=== PATIENT | male | born 1980 | race Caucasian/White ===

== ENCOUNTER 2017-02-21 15:06 | Emergency (ER) | payer SELFPAY ==
[~2017-02-21] VITALS: Ht 190.5 cm; Wt 92.0 kg
[~2017-02-21 15:06] MED LIST: COLA100C3 PO; PANT20 PO; ZOFR4TAB PO
[2017-02-21 15:08] VITALS: BP 109/56; PULSE 80; RESP 16; TEMP 97.7; O2SAT 98
--- NOTE | 2017-02-21 15:24 | PD ---
Physical Exam Time Seen by Provider: 15:23 Narrative Pt presents to the emergency department for evaluation of N/V/D for 3 days and today chest pain and lightheadedness. States had fever of 102 degrees F this morning. VSS. Awaiting bed placement. Data Data Last Documented VS Vital Signs Date Time Temp Pulse Resp B/P Pulse Ox O2 Delivery O2 Flow Rate FiO2 02/21/17 15:08 97.7 80 16 109/56 98 Room Air MDM Supervised Visit with VIC: Susan Stevenson Feb 21, 2017 15:24
--- NOTE | 2017-02-21 15:56 | PD ---
HPI Chief Complaint: GI Complaint Time Seen by Provider: 15:50 Travel History International Travel<30 days: No Contact w/Intl Traveler<30days: No Traveled to known affect area: No History of Present Illness HPI 36-year-old male presents to the emergency department for evaluation of nausea, vomiting, diarrhea, chest pain, fevers, fatigue, dizziness, cough. Patient was nausea, vomiting, diarrhea for 3 days. He states he has had 3 stools today which were liquid without blood. He states he has vomited multiple times. Reports fevers of up to 102.3. He states his last fever was this morning. He did not take anything for his fever is now afebrile. Patient states he started with left-sided chest pain and shortness of breath that has been intermittent since yesterday. He states his pressure currently rates a 5/10. He also states he is fatigued and dizzy. He denies any syncope. He reports chronic lower abdominal pain that he has had for "years". He has never followed up with a industrial automation engineer for this. He denies any penile discharge or testicular pain. No leg swelling. No recent trauma or surgery. No history DVT or PE. No hemoptysis. Patient reports history of asthma and uses albuterol as needed. Patient denies history of IVDU. [facility] Past Medical History Asthma: Yes Diminished Hearing: No Respiratory: Yes (ASTHMA) Tetanus Vaccination: Unknown Social History Alcohol Use: Yes Tobacco Use: Yes Substance Use: No Allergies-Medications (Allergen,Severity, Reaction): Coded Allergies: No Known Allergies (Verified , 02/21/17) Reported Meds & Prescriptions Reported Meds & Active Scripts Active Review of Systems Except as stated in HPI: all other systems reviewed are Neg Physical Exam Narrative GENERAL: Well-nourished, well-developed male patient, ambulatory. Afebrile. SKIN: Focused skin assessment warm/dry. HEAD: Normocephalic. Atraumatic. EYES: No scleral icterus. No injection or drainage. NECK: Supple, trachea midline. No JVD or lymphadenopathy. CARDIOVASCULAR: Regular rate and rhythm without murmurs, gallops, or rubs. RESPIRATORY: Breath sounds equal bilaterally. No accessory muscle use. Mild respiratory wheezes noted throughout. GASTROINTESTINAL: Abdomen soft, non-tender, nondistended. No abdominal pain to Palpation. MUSCULOSKELETAL: No cyanosis, or edema. Left chest wall is easily reproducible with palpation. BACK: Nontender without obvious deformity. No CVA tenderness. Data Data Last Documented VS Vital Signs Date Time Temp Pulse Resp B/P Pulse Ox O2 Delivery O2 Flow Rate FiO2 02/21/17 16:23 16 97 02/21/17 16:10 21 02/21/17 15:08 97.7 80 109/56 Room Air Orders Electrocardiogram (02/21/17 15:47) Complete Blood Count With Diff (02/21/17 15:47) Comprehensive Metabolic Panel (02/21/17 15:47) Influenzae A/B Antigen (02/21/17 15:47) Chest, Single Ap (02/21/17 15:47) Iv Access Insert/Monitor (02/21/17 15:47) Oximetry (02/21/17 15:47) Sodium Chloride 0.9% Flush (Ns Flush) (02/21/17 16:00) Lipase (02/21/17 15:47) Creatine Kinase (Cpk) (02/21/17 15:47) Troponin I (02/21/17 15:47) Sodium Chlor 0.9% 1000 Ml Inj (Ns 1000 M (02/21/17 16:00) Ondansetron Inj (Zofran Inj) (02/21/17 16:00) Albuterol-Ipratropium Neb (Duoneb Neb) (02/21/17 16:00) Labs Laboratory Tests Test 02/21/17 14:00 White Blood Count 11.2 TH/MM3 Red Blood Count 5.07 MIL/MM3 Hemoglobin 14.7 GM/DL Hematocrit 43.6 % Mean Corpuscular Volume 86.1 FL Mean Corpuscular Hemoglobin 28.9 PG Mean Corpuscular Hemoglobin 33.6 % Concent Red Cell Distribution Width 12.9 % Platelet Count 257 TH/MM3 Mean Platelet Volume 8.0 FL Neutrophils (%) (Auto) 75.4 % Lymphocytes (%) (Auto) 13.4 % Monocytes (%) (Auto) 7.7 % Eosinophils (%) (Auto) 3.0 % Basophils (%) (Auto) 0.5 % Neutrophils # (Auto) 8.4 TH/MM3 Lymphocytes # (Auto) 1.5 TH/MM3 Monocytes # (Auto) 0.9 TH/MM3 Eosinophils # (Auto) 0.3 TH/MM3 Basophils # (Auto) 0.1 TH/MM3 CBC Comment DIFF FINAL Differential Comment Sodium Level 139 MEQ/L Potassium Level 3.4 MEQ/L Chloride Level 103 MEQ/L Carbon Dioxide Level 28.4 MEQ/L Anion Gap 8 MEQ/L Blood Urea Nitrogen 10 MG/DL Creatinine 0.89 MG/DL Estimat Glomerular Filtration 97 ML/MIN Rate Random Glucose 81 MG/DL Calcium Level 9.2 MG/DL Total Bilirubin 0.4 MG/DL Aspartate Amino Transf 21 U/L (AST/SGOT) Alanine Aminotransferase 27 U/L (ALT/SGPT) Alkaline Phosphatase 95 U/L Total Creatine Kinase 62 U/L Troponin I LESS THAN 0.02 NG/ML Total Protein 7.8 GM/DL Albumin 3.9 GM/DL Lipase 62 U/L MDM Medical Decision Making Medical Screen Exam Complete: Yes Emergency Medical Condition: Yes Medical Record Reviewed: Yes Interpretation(s) chest x-ray - CONCLUSION: No acute disease. Hyperinflated lungs. Differential Diagnosis Viral syndrome versus influenza versus pneumonia versus asthma exacerbation Narrative Course 36-year-old male presents to the emergency department for evaluation nausea, vomiting, diarrhea, intermittent fevers, chest pain, shortness of breath. Physical exam does reveal mild expiratory wheezes noted throughout. EKG, CBC, CMP, lipase, CK, troponin, and influenza are ordered and pending. Chest x-ray is ordered and pending. Patient is given normal saline 1 L IV bolus, Zofran 4 mg IV, DuoNeb 2. EKG shows sinus rhythm, heart rate 65, no acute ST changes. CBC shows slight leukocytosis 11.2. CMP shows no acute abnormality. Lipase is 62. CK is 62. Troponin is less than 0.02. Influenza is negative. Chest x-ray shows no acute disease. I discussed the case with my attending physician, Dr. Dominguez, who agrees with plan and disposition. Patient prescription for Bentyl, Protonix, Zofran. He is taking [id number] Tylenol as needed for fevers and follow up with primary care physician. He is to return for any acute worsening of symptoms. He verbalizes agreement and understanding. Diagnosis Primary Impression: Nausea and vomiting Qualified Code: R11.2 - Non-intractable vomiting with nausea, unspecified vomiting type Additional Impression: Viral syndrome Referrals: [facility] Primary Care Physician Patient Instructions: Acute Nausea and Vomiting (ED), General Instructions, Viral Syndrome (ED) Additional Instructions: Take Bentyl as directed for abdominal pain. Take Protonix as instructed. Take Zofran as started as needed for nausea and vomiting. [id number] Tylenol every 4 hours as needed for fever. Follow-up with her primary care physician and industrial automation engineer. Return to the emergency department for any acute worsening of symptoms. Med/Other Pt SpecificInfo: Prescription(s) given Scripts Pantoprazole (Protonix)20 Mg Tab20 Mg PO DAILY #30 TAB Ref 0 Prov:Laverne Coreas 02/21/17 Ondansetron (Zofran)4 Mg Tab4 Mg PO Q6HR PRN (NAUSEA OR VOMITING) #20 TAB Ref 0 Prov:Laverne Coreas 02/21/17 Dicyclomine (Bentyl)20 Mg Tab20 Mg PO QID PRN (ABDOMINAL PAIN) 7 Days Ref 0 Prov:Laverne Coreas 02/21/17 Disposition: 01 DISCHARGE HOME Condition: Stable Laverne Coreas Feb 21, 2017 15:56
[2017-02-21] MEDS ORDERED: SODIUM CHLORIDE 0.9% FLUSH 10 ML FLUSH IVF PRN (16:00)
[2017-02-21] MEDS ORDERED: SODIUM CHLOR 0.9% 1000 ML INJ 1,000 ML IV ONE (16:00)
[2017-02-21] MEDS ORDERED: ONDANSETRON HCL 4 MG/2 ML VIAL IV PUSH ONE (16:00)
[2017-02-21] MEDS: RESP: ALBUTEROL 2.5 MG/IPRATROPIUM 0.5 MG NEB (SCH) INH (16:06)
[2017-02-21 16:10] VITALS: O2SAT 96
[2017-02-21 16:23] VITALS: RESP 16; O2SAT 97
--- NOTE | 2017-02-21 16:46 | RADRPT ---
EXAM DATE/TIME: 02/21/2017 16:12 [facility] COMPARISON: CHEST SINGLE AP, January 02, 2015, 17:57. INDICATIONS : Short of breath, nausea, and diarrhea for several days. MEDICAL HISTORY : Asthma. SURGICAL HISTORY : None. ENCOUNTER: Initial ACUITY: 3 days PAIN SCORE: 2/10 LOCATION: Bilateral chest FINDINGS: A single view of the chest demonstrates the lungs to be symmetrically hyper aerated without evidence of mass, infiltrate or effusion. The cardiomediastinal contours are unremarkable. Osseous structure s are intact. CONCLUSION: No acute disease. Hyperinflated lungs. Khurram Nelson MD on February 21, 2017 at 16:44 Board Certified Radiologist. This report was verified electronically.
[2017-02-21 17:51] LABS: AUTOMATED NEUTROPHIL # 8.4 TH/MM3 (1.8-7.7); BASOPHIL # 0.1 TH/MM3 (0-0.2); BASOPHIL % 0.5 % (0.0-2.0); EOSINOPHIL # 0.3 TH/MM3 (0-0.4); HEMATOCRIT 43.6 % (39.0-51.0); HEMO FLAGS DIFF FINAL; LYMPH % 13.4 % (9.0-44.0); LYMPHOCYTE # 1.5 TH/MM3 (1.0-4.8); MEAN CELL VOLUME 86.1 FL (80.0-100.0); MEAN CORPUSCULAR HEMOGLOBIN 28.9 PG (27.0-34.0); MEAN CORPUSCULAR HGB CONC 33.6 % (32.0-36.0); MONO % 7.7 % (0.0-8.0); NEUT % 75.4 % (16.0-70.0); PLATELET COUNT 257 TH/MM3 (150-450); RED BLOOD COUNT 5.07 MIL/MM3 (4.50-5.90); RED CELL DISTRIBUTION WIDTH 12.9 % (11.6-17.2); WHITE BLOOD COUNT 11.2 TH/MM3 (4.0-11.0)
[2017-02-21 18:09] LABS: ANION GAP 8 MEQ/L (5-15); AST (GOT) 21 U/L (15-37); BICARBONATE 28.4 MEQ/L (21.0-32.0); BLOOD UREA NITROGEN 10 MG/DL (7-18); CHLORIDE 103 MEQ/L (98-107); GLOMERULAR FILTRATION RATE 97 ML/MIN (>89); POTASSIUM 3.4 MEQ/L (3.5-5.1); SODIUM (NA) 139 MEQ/L (136-145)
[2017-02-21 18:13] LABS: ALKALINE PHOSPHATASE 95 U/L (45-117); ALT (GPT) 27 U/L (12-78); TOTAL BILIRUBIN ADULT 0.4 MG/DL (0.2-1.0)
[2017-02-21 18:20] LABS: CREATINE KINASE 62 U/L (39-308)
[2017-02-21 18:30] VITALS: BP 127/67; PULSE 85; RESP 16; O2SAT 98
[2017-02-21] MEDS ORDERED: ZOFR4TAB PO (18:35)
[2017-02-21] MEDS ORDERED: BENT20TA PO (18:35)
[2017-02-21] MEDS ORDERED: PANT20 PO (18:35)
--- NOTE | 2017-02-22 21:05 | EKG ---
Date Performed: 02/21/2017 Time Performed: 15:52:49 PTAGE: 36 years EKG: Sinus rhythm NORMAL ECG PREVIOUS TRACING : 01/20/2002 18.21 Compared to prior tracing no significant change DOCTOR: Ronald Hampton Interpretating Date/Time 02/22/2017 21:03:47
== END 2017-02-21 18:51 | disposition home or self-care (01) ==
LOC: NEPD 15:06
DX: R11.2 Nausea with vomiting, unspecified (principal); B34.9 Viral infection, unspecified; R06.02 Shortness of breath; J45.909 Unspecified asthma, uncomplicated
CPT/HCPCS: 71010; 80053; 82550; 83690; 84484; 85025; 87804; 93005; 94640; 94664; 96361; 96374; 99284; J2405; J7030